=== PATIENT | female | born 2000 | race Caucasian/White ===

== ENCOUNTER 2024-05-03 12:59 | Emergency (ER) | payer OTHER, SELFPAY ==
--- NOTE | 2024-05-03 13:03 | ED.GENADULT ---
HPI - General Adult General Chief complaint: Upper Respiratory Infection Stated complaint: Headache Time Seen by Provider: 05/03/24 13:15 Source: patient, RN notes reviewed and old records reviewed Mode of arrival: ambulatory Limitations: no limitations History of Present Illness HPI narrative: 24-year-old female presents to the [facility] with a 4-5 day history of body aches, congestion. No treatment prior to arrival Onset (ago): day(s) (4-5) Treatments prior to arrival: none Related Data Home Medications Medication Instructions Recorded Confirmed No Home Medications 05/03/24 05/03/24 Allergies Allergy/AdvReac Type Severity Reaction Status Date / Time No Known Allergies Allergy Verified 05/03/24 13:24 Review of Systems Review of Systems: All systems reviewed & are unremarkable except as noted in HPI and below Constitutional: Constitutional: Reports no additional constitutional complaints Eyes: Eyes: Reports no additional eye complaints ENT: Reports as per HPI Cardiovascular: Cardiovascular: Reports no additional cardiovascular complaints, Denies chest pain and Denies dyspnea Respiratory: Respiratory: Reports no additional respiratory complaints, Denies chest congestion, Denies cough and Denies dyspnea Gastrointestinal: Gastrointestinal: Reports no additional gastrointestinal complaints, Denies abdominal pain, Denies nausea and Denies vomiting Musculoskeletal: Musculoskeletal: Reports no additional musculoskeletal complaints Integumentary/Breasts: Skin/Breast: Reports system reviewed and no additional complaints, except as docu Neurologic: Reports system reviewed and no additional complaints, except as documented Psychiatric: Psychiatric: Reports no additional psychiatric complaints Allergic/Immunologic: Allergic/Immunologic: Reports no additional allergic/immunologic complaints PMFSH Comments At the time of my signature, I reviewed and agree with the nursing past medical, surgical, social, and family history. There is no relevant family history pertinent to the patient complaint. Exam Const: General: cooperative, healthy appearing, comfortable, no acute distress, well developed, alert and well nourished Nutritional Appearance: well nourished and obese Orientation/consciousness: patient oriented x3 Limitations: no limitations HENMT: Head: normal to inspection Ears: hearing grossly normal bilaterally, external ears normal, TM's normal bilaterally, EAC's normal, mastoids normal and no periauricular adenopathy Face/Nose/Sinus: Normal external nose present, Normal nares present, Normal nasal mucous membranes and turbinates present, normal facial exam and face symmetric Face and sinus: normal facial exam and face symmetric Throat: tonsils normal, uvula midline, postnasal drainage and no uvular edema Eyes: General: appearance normal, both eyes and all related structures Alignment and Position: alignment normal Periorbital: periorbital findings normal Neck: Neck: normal visual inspection, full ROM, no lymphadenopathy and no meningeal signs Chest: Chest palpation & inspection: normal inspection of the chest Resp: Effort & Inspection: normal respiratory effort and able to speak in complete sentences Auscultation: clear to auscultation bilaterally, no crackles, no rales, no rhonchi and no wheezes Cardio: Rate: regular rate Rhythm: regular rhythm Skin: General skin exam: normal color and no rashes or lesions noted Lesions: no lesions Rashes: no rashes Trauma: no lacerations or abrasions Wounds: no wounds Neuro: General: patient oriented x3, gait normal, tone normal, moves all extremities and no meningeal signs Cranial nerves: Yes Equal, round and reactive pupils present Cognition (Neuro): normal cognition Speech: normal speech Gait exam (Neuro): Normal gait present Extrem: General: normal to inspection, full ROM, capillary refill normal and normal gait Psych: Appearance: grossly normal and well
[2024-05-03 13:17] VITALS: BP 143/92; PULSE 107; RESP 16; TEMP 37.2; O2SAT 98
== END 2024-05-03 13:40 | disposition home or self-care (01) ==
PROVIDERS: Emergency Provider Nurse Practitioner
DX: J32.9 Chronic sinusitis, unspecified (principal); J06.9 Acute upper respiratory infection, unspecified
CPT/HCPCS: 99202; G0463

== ENCOUNTER 2024-07-13 17:07 | Emergency (ER) | payer OTHER, SELFPAY ==
[2024-07-13 17:16] VITALS: BP 138/75; PULSE 93; RESP 16; TEMP 37; O2SAT 99
--- NOTE | 2024-07-13 17:36 | ED.URI ---
HPI - URI/Sore Throat General Chief Complaint: Upper Respiratory Infection Stated Complaint: loss of voice,throat pain,ear pain Time Seen by Provider: 07/13/24 17:36 Source: patient Mode of arrival: ambulatory Limitations: no limitations History of Present Illness HPI Narrative: 24-year-old female presents with complaint of ear pain. Reports nasal congestion, postnasal drainage, sore throat for 4-5 days. Ear pain for 2 days. Afebrile. Patient reports history of frequent ear infections. All systems reviewed and negative except as noted above. Related Data Allergies Allergy/AdvReac Type Severity Reaction Status Date / Time No Known Allergies Allergy Verified 07/13/24 17:13 Review of Systems Review of Systems: CONSTITUTIONAL: Denies fever, chills, or sweats. EYES: Denies visual changes, redness, or discharge. ENT: Reports rhinorrhea, congestion, sore throat, and otalgia. CARDIOVASCULAR: Denies chest pain, palpitations, or edema. RESPIRATORY: Denies cough or dyspnea. GASTROINTESTINAL: Denies abdominal pain, nausea, vomiting, or diarrhea. GENITOURINARY: Denies dysuria or hematuria. SKIN: Denies rash or itching. MUSCULOSKELETAL: Denies back pain, joint pain, or myalgia. NEUROLOGIC: Denies headache, numbness, or weakness. PSYCHIATRIC: Denies anxiety or depression. All other systems reviewed are negative, except as documented in HPI. PMFSH Comments At time of signature, agree with nursing past medical, surgical, social and family history. There is no relevant family history pertinent to the presenting complaint. Exam Narrative: GENERAL: This is a well-nourished, well-developed patient, in no apparent distress. HEAD: normocephalic, atraumatic. EYES: PERRL. Sclera clear/white. Vision is grossly intact. EARS: External ears normal, auditory canals clear and without drainage, fluid bilateral TMs with erythema, bulging. No perforation bilaterally. Hearing grossly intact. NOSE: External nose normal with Mild nasal congestion, clear nasal drainage THROAT: Mucous membranes moist, posterior pharynx clear. NECK: Neck supple, non-tender without lymphadenopathy, masses or thyromegaly. CARDIOVASCULAR: Regular rate and rhythm without murmurs, gallops, or rubs. RESPIRATORY: Clear to auscultation. Breath sounds equal bilaterally. No wheezes, rales, or rhonchi. SKIN: warm, Dry, intact with no suspicious lesions or rash, good texture and turgor. NEURO: awake, alert, and oriented to person, place and time. There were no obvious focal neurologic abnormalities. EXTREMITIES: No joint tenderness, effusion, or edema noted. Course Course Level of Care: Express Care Visit Vital Signs Vital signs: Vital Signs Temperature 37.0 C 07/13/24 17:16 Pulse Rate 93 07/13/24 17:16 Respiratory Rate 16 07/13/24 17:16 Blood Pressure 138/75 07/13/24 17:16 Pulse Oximetry 99 07/13/24 17:16 Oxygen Delivery Room Air 07/13/24 17:16 Temperature 37.0 C 07/13/24 17:16 Pulse Rate 93 07/13/24 17:16 Respiratory Rate 16 07/13/24 17:16 Blood Pressure 138/75 07/13/24 17:16 Pulse Oximetry 99 07/13/24 17:16 Oxygen Delivery Room Air 07/13/24 17:16 reviewed MDM - URI/Sore Throat MDM Narrative Medical decision making narrative: Patient is aware of diagnosis, understands and agrees to treatment plan. Anticipatory guidance given. Patient agrees to follow-up as directed and is aware of reasons to seek care at the emergency department. Portions of this record may have been created with voice recognition software Differential Diagnosis Differential diagnosis: Likely upper respiratory infection, otitis media and sinusitis Discharge Plan Discharge Clinical Impression: Bilateral acute otitis media Patient Disposition: Home, Self-Care Condition: Stable Instructions: Antibiotic Form, Ear Infection (ED) Additional Instructions: take antibiotic as prescribed until gone. Take ibuprofen or Tylenol every 6-8 hours as needed for pain. Take an [id number] antihistamine daily such as Claritin or Zyrtec. Use a nasal spray daily such as Flonase or Nasacort. See your doctor if symptoms are not improving. Prescriptions: New amoxicillin 875 mg tablet 875 mg PO Q12H 10 Days Qty: 20 0RF Follow-up/Referrals: PHYSICIAN,STORAGE AND BACKUP ADMINISTRATOR [Primary Care Provider] - Time of Disposition: 17:42
== END 2024-07-13 17:44 | disposition home or self-care (01) ==
PROVIDERS: Emergency Provider Nurse Practitioner Family
DX: H66.93 Otitis media, unspecified, bilateral (principal)
CPT/HCPCS: 99213; G0463

== ENCOUNTER 2024-07-26 10:34 | Emergency (ER) | payer OTHER, SELFPAY ==
--- NOTE | 2024-07-26 10:37 | ED_ITS ---
HPI - URI/Sore Throat General Chief Complaint: Ear Stated Complaint: ears blocked,itching,lower body rash Time Seen by Provider: 07/26/24 10:36 Source: patient Mode of arrival: ambulatory Limitations: no limitations History of Present Illness HPI Narrative: Oriented is a 24-year-old female patient presenting to the clinic today with complaints of ears feeling clogged, itching, and a rash. She reports she just finished amoxicillin prescription for an ear infection. Was seen 2 weeks ago for an ear infection and given amoxicillin. Denies any amoxicillin allergy-has had it multiple times without a rash for itching. She denies any chest pain but does report some slight shortness of breath. Has a red, itchy, raised, splotchy rash on her arms, legs, and abdomen. MD elicited complaint: cough Related Data Allergies Allergy/AdvReac Type Severity Reaction Status Date / Time No Known Allergies Allergy Verified 07/26/24 10:42 Review of Systems Review of Systems: Pertinent positives per HPI. Patient denies any fever, chills, rash, headache, visual changes, dizziness, shortness of breath, chest pain, palpitations, nausea, vomiting, diarrhea, constipation, abdominal pain, or any urinary issues. [facility] Comments At the time of my signature, I reviewed and agree with the nursing past medical, surgical, social, and family history. There is no relevant family history pertinent to the patient complaint. Exam Narrative: General: Well-developed, morbidly obese, in no apparent distress Head: Normocephalic, atraumatic Eyes: Pupils equally round and reactive to light bilaterally, EOM intact, sclera and conjunctive clear, no discharge, lids normal Ears: Right TM intact and clear, right TM intact, red, congested, ear canals clear, no drainage, grossly hearing normal. Nose: Nares patent, clear nasal discharge, no inflammation, no sinus tenderness. Mouth: Oral pharynx without lesions or masses, good dentition, MMM. Neck: Supple, trachea midline, no enlargement of anterior or posterior cervical nodes, no thyroid masses or goiter palpable. Cardio: Regular rate and rhythm, s1 and s2 normal, no murmur appreciated. Resp: Clear to auscultation bilaterally, no rhonchi, rales, wheezing or rubs Integumentary: [place], warm, and dry, intact without lesion, red, itchy, raised, hive like rash to the abdomen, arms, and legs. Course Course Emergency Course: Portions of this record may have been created with voice recognition software. Level of Care: Express Care Visit Vital Signs Vital signs: Vital signs reviewed MDM - URI/Sore Throat MDM Narrative Medical decision making narrative: At the time of visit patient is resting comfortably on the exam table. Patient appears to be nontoxic. Plan: I suspect patient has resolving otitis media and hives. Prescription for prednisone was sent to the pharmacy. Supportive measures were discussed with the patient and they voiced understanding discharge instructions and agrees to treatment plan. Return precautions reviewed Differential Diagnosis Differential diagnosis: Likely upper respiratory infection, otitis media, sinusitis, viral infection, bronchitis, influenza, pharyngitis and other (COVID) Discharge Plan Discharge Clinical Impression: Acute urticaria Acute otalgia Qualifiers: Laterality: bilateral Qualified Code(s): H92.03 - Otalgia, bilateral Patient Disposition: Home, Self-Care Condition: Stable Instructions: Antibiotic Form, Urticaria (ED), Earache (ED) Additional Instructions: Left ear does appear to be somewhat red with congestion behind the ear however I feel as though this is resolving. Take prednisone as directed May take 20-40 mg of Pepcid daily times 10 days Avoid hot showers May apply calamine lotion to rash Avoid scratching and this causes rash to spread May take benadryl 25-50mg every 6 hours as needed for itching. Follow up with your PCP in 3-5 days if symptoms persist or sooner if they worsen. Go to the Emergency Room if symptoms worsen- fever, rash spreading with treatment, shortness of breath, tongue swelling, drooling, or chest pain Patient Language: [place] Island[place] Prescriptions: New prednisone 10 mg tablet 10 mg PO DAILY Qty: 30 0RF Rx Instructions: 60mg po daily on day 1, 40mg po daily on days 2-4, 30mg po daily on days 5-6, 20mg po daily on days 7-8, 10mg po daily on days 9-10 Follow-up/Referrals: PHYSICIAN,DRUM BUILDER [Primary Care Provider] - Time of Disposition: 10:49 Quality NIHSS Nursing Documentation ED NIHSS nursing documentation: reviewed/agree
[2024-07-26 10:45] VITALS: BP 134/83; PULSE 110; RESP 18; TEMP 36.9; O2SAT 99
== END 2024-07-26 10:57 | disposition home or self-care (01) ==
PROVIDERS: Emergency Provider Nurse Practitioner Family
DX: L50.9 Urticaria, unspecified (principal); H92.03 Otalgia, bilateral
CPT/HCPCS: 99213; G0463

== ENCOUNTER 2024-09-12 18:41 | Emergency (ER) | payer OTHER, SELFPAY ==
[2024-09-12 18:52] VITALS: BP 114/61; PULSE 101; RESP 18; TEMP 36.6; O2SAT 100
--- NOTE | 2024-09-12 19:45 | ED.FEMALEGU ---
HPI - Female Genitourinary General Chief complaint: Urogenital-Female Stated complaint: Right Side Flank/Back/Hip Pain Time Seen by Provider: 09/12/24 19:45 Source: patient and RN notes reviewed Mode of arrival: ambulatory Limitations: no limitations History of Present Illness MD elicited complaint: UTI Related Data Home Medications ?Medication ?Instructions ?Recorded ?Confirmed ?Last Taken ?Type No Home Medications 09/12/24 Unknown History Allergies Allergy/AdvReac Type Severity Reaction Status Date / Time No Known Allergies Allergy Verified 09/12/24 19:03 Review of Systems Review of Systems: CONSTITUTIONAL: Denies malaise, chills, sweats, or fever. CARDIOVASCULAR: Denies chest pain, palpitations, or edema. RESPIRATORY: Denies cough or dyspnea. GASTROINTESTINAL: Denies abdominal pain, nausea, vomiting, diarrhea GENITOURINARY: Reports dysuria, frequency, urgency, suprapubic pressure. Denies flank pain or hematuria. SKIN: Denies rash or itching. MUSCULOSKELETAL: Denies back pain or myalgia. All systems reviewed & are unremarkable except as noted in HPI and below PMFSH Comments At time of signature, agree with nursing past medical, surgical, social and family history. There is no relevant family history pertinent to the presenting complaint Exam Narrative: GENERAL: Well-appearing, well-nourished, and in no acute distress. HEAD: Normocephalic. EYES: PERRLA, conjunctivae clear. NECK: Supple. No lymphadenopathy CHEST: Clear to auscultation. No respiratory distress. HEART: Regular rate and rhythm. ABDOMEN: Soft, nontender upon palpation, nondistended, normal active bowel sounds, no palpable or pulsatile masses, no guarding. No CVA tenderness SKIN: Warm, dry, no rash. NEURO: Alert and oriented x3. PSYCH: Normal mood and affect Course Course Emergency Course: Patient is aware of diagnosis, understands and agrees to treatment plan. Anticipatory guidance given. Patient agrees to follow-up as directed and is aware of reasons to seek care at the emergency department. Portions of this record may have been created with voice recognition software Level of Care: Express Care Visit Vital Signs Vital signs: Vital Signs Temperature 97.8 F 09/12/24 18:52 Pulse Rate 101 H 09/12/24 18:52 Respiratory Rate 18 09/12/24 18:52 Blood Pressure 114/61 09/12/24 18:52 Pulse Oximetry 100 09/12/24 18:52 Oxygen Delivery Room Air 09/12/24 18:52 Temperature 97.8 F 09/12/24 18:52 Pulse Rate 101 H 09/12/24 18:52 Respiratory Rate 18 09/12/24 18:52 Blood Pressure 114/61 09/12/24 18:52 Pulse Oximetry 100 09/12/24 18:52 Oxygen Delivery Room Air 09/12/24 18:52 Reviewed. MDM - Female Genitourinary MDM Narrative Medical decision making narrative: Exam findings and UA show no acute concerns or changes; patient is non-toxic appearing and is in no distress. Patient is appropriate for outpatient treatment and follow-up. Differential Diagnosis Differential diagnosis: Likely urinary tract infection and cystitis Critical Care Time Critical Care Time Critical Care Time: No Discharge Plan Discharge Patient Language: Peruvian Prescriptions: No Action No Home Medications Follow-up/Referrals: PHYSICIAN,OLIVING MACHINE OPERATOR [Primary Care Provider] -
[2024-09-12 19:51] LABS: EDUAAPPEAR Cloudy; EDUABILI Negative (Negative); EDUABLOOD 2+ (Negative); EDUACOLOR1 Amber; EDUAGLUCOSE Negative (Negative); EDUAKETONE Negative (Negative); EDUALEUKO Trace (Negative); EDUANITRATE Negative (Negative); EDUAPH 5.5; EDUAPROTEIN Negative (Negative); EDUASPGRAVITY 1.025; EDUAUROBILI 0.2
--- NOTE | 2024-09-12 19:53 | ED_ITS ---
HPI - Back Pain/Injury General Chief Complaint: Urogenital-Female Stated Complaint: Right Side Flank/Back/Hip Pain Time Seen by Provider: 09/12/24 19:45 Source: patient and RN notes reviewed Mode of arrival: ambulatory Limitations: no limitations History of Present Illness HPI Narrative: 24-year-old female presents concern for right low back pain that radiates to the hip and buttock. She reports pain for 1 it is worse she moves, bends, twists, stands up. She denies pain at rest. She had a laparoscopic hysterectomy 2 weeks ago in her surgeon suggested she get checked for UTI. She denies fever, body aches, chills, sweats, dysuria, frequency, urgency, hematuria, nausea, vomiting. She denies abdominal pain. She denies loss of bowel or bladder function, perianal anesthesia, weakness in any extremity MD elicited complaint: back pain Related Data Allergies Allergy/AdvReac Type Severity Reaction Status Date / Time No Known Allergies Allergy Verified 09/12/24 19:03 Review of Systems Review of Systems: CONSTITUTIONAL: Denies malaise, chills, sweats, or fever. CARDIOVASCULAR: Denies chest pain, palpitations, or edema. RESPIRATORY: Denies cough or dyspnea. GASTROINTESTINAL: Denies abdominal pain, nausea, vomiting, diarrhea, loss of bowel function GENITOURINARY: Denies dysuria, hematuria, frequency, loss of bladder function. SKIN: Denies rash or itching. MUSCULOSKELETAL: Reports right low back pain that radiates to the right buttock, hip, towards the abdomen NEUROLOGIC: Denies numbness, weakness, or headache. All systems reviewed & are unremarkable except as noted in HPI and below PMFSH Comments At time of signature, agree with nursing past medical, surgical, social and family history. There is no relevant family history pertinent to the presenting complaint Exam Narrative: GENERAL: Well-appearing, well-nourished, and in no acute distress. HEAD: Normocephalic, atraumatic. EYES: PERRLA and EOMI. NECK: Supple. No lymphadenopathy. CHEST: Clear to auscultation. No respiratory distress. HEART: Regular rate and rhythm. Distal pulses palpable and equal, cap refill <3 seconds ABDOMEN: Soft, nontender, nondistended, normal active bowel sounds, no palpable or pulsatile masses. No CVA tenderness MUSCULOSKELETAL: Normal range of motion and strength in all extremities; 5/5 strength with hip flexion and extension, dorsiflexion and extension, knee flexion and extension, plantar flexion and extension. Normal sensation in dermatomal distributions with sensitivity to light touch and pain. No midline back tenderness to palpation. No paraspinal tenderness. Transfers from sitting to standing. SKIN: Warm, dry, no rash. No ecchymosis, erythema, open wounds to back. NEURO: No focal deficits. Alert and oriented x3. Reflexes intact. Normal gait. PSYCH: Normal mood and affect Course Course Emergency Course: Patient is aware of diagnosis, understands and agrees to treatment plan. Anticipatory guidance given. Patient agrees to follow-up as directed and is aware of reasons to seek care at the emergency department. Portions of this record may have been created with voice recognition software Level of Care: [facility] Visit Vital Signs Vital signs: Vital Signs Temperature 97.8 F 09/12/24 18:52 Pulse Rate 101 H 09/12/24 18:52 Respiratory Rate 18 09/12/24 18:52 Blood Pressure 114/61 09/12/24 18:52 Pulse Oximetry 100 09/12/24 18:52 Oxygen Delivery Room Air 09/12/24 18:52 Temperature 97.8 F 09/12/24 18:52 Pulse Rate 101 H 09/12/24 18:52 Respiratory Rate 18 09/12/24 18:52 Blood Pressure 114/61 09/12/24 18:52 Pulse Oximetry 100 09/12/24 18:52 Oxygen Delivery Room Air 09/12/24 18:52 Reviewed. MDM - Back Pain/Injury MDM Narrative Medical decision making narrative: [facility]. History is obtained from patient who is an independent historian and physical exam was performed.? Available medical records were reviewed. ? Exam findings and relevant testing show no acute concerns or changes; patient is non-toxic appearing and is in no distress. No risk factors or findings concerning for epidural abscess, diskitis, vertebral osteomyelitis, cord compression, cauda equina, vertebral fracture or bone malignancy, AAA, or pyelonephritis. Patient instructed to consider further imaging and workup through their primary care physician as an outpatient if symptoms persist. ? Differential diagnosis and treatment plan were discussed with the patient. Patient agrees with discussion and after shared medical decision making agrees with plan of care. All questions were answered to the patient's satisfaction. Patient is appropriate for outpatient treatment and follow-up. Lab Data Labs: Lab Results 09/12/24 Range/Units 19:45 POC Urine Color [place]is POC Urine Clarity Cloudy POC Urine pH 5.5 POC Ur Specif [place] 1.025 POC Urine Protein Negative (Negative) POC Ur Glucose (UA) Negative (Negative) POC Urine Ketones Negative (Negative) POC Urine Blood 2+ (Negative) POC Urine Nitrite Negative (Negative) POC Urine Bilirubin Negative (Negative) POC Urine Urobilinogen 0.2 POC U Leukocyte Esteras Trace (Negative) Critical Care Time Critical Care Time Critical Care Time: No Discharge Plan Discharge Clinical Impression: Nonspecific low back pain Patient Disposition: Home, Self-Care Condition: Stable Instructions: Back Pain (ED) Additional Instructions: Please follow up with your Primary Care Doctor within 48-72 hours - call for an appointment. Walking and other gentle exercising several times a week has been shown to improve back pain; bed rest is not recommended. Take Motrin 800mg every 6-8 hours with food for the next 2-3 days, take muscle relaxers every 8 hours as needed for muscle spasm- do not drive or make any important decisions while on this medication for it can make you drowsy. You may apply heat or cold to the area as needed. If you experience any worsening pain, swelling, numbness, weakness please go to ER. Contact your doctor or go to the emergency department if you develop problems with bladder or bowel function, weakness or loss of feeling in one or both of your legs, or any other serious concerns. Patient Language: [place] Prescriptions: New cyclobenzaprine 10 mg tablet 10 mg PO TID PRN (Reason: muscle spasm) Qty: 20 0RF ibuprofen 800 mg tablet 800 mg PO Q6H PRN (Reason: pain) Qty: 30 0RF Follow-up/Referrals: PHYSICIAN,WASTEWATER TREATMENT PLANT OPERATOR [Primary Care Provider] - Time of Disposition: 19:55
== END 2024-09-12 20:05 | disposition home or self-care (01) ==
PROVIDERS: Emergency Provider Nurse Practitioner
DX: M54.50 Low back pain, unspecified (principal)
CPT/HCPCS: 81003; 87086; 99213; G0463

== ENCOUNTER 2024-12-20 08:04 | Emergency (ER) | payer OTHER, SELFPAY ==
--- NOTE | 2024-12-20 08:07 | ED.GENADULT ---
HPI - General Adult General Chief complaint: Unspecified Stated complaint: Reaction To New Medicaine Time Seen by Provider: 12/20/24 08:14 Source: patient, RN notes reviewed and old records reviewed Mode of arrival: ambulatory Limitations: no limitations History of Present Illness HPI narrative: 24-year-old female presents to the [facility] after taking 1 dose of Zoloft 100 mg at 4:00 p.m. yesterday, started at 9:00 p.m. last night feeling shaky, brain fog, and trouble sleeping. Has a HX of being on Zoloft 2 years ago without issues. Denies chest pain, shortness of breath. Denies fevers. Onset (ago): day(s) (1) Related Data Home Medications ?Medication ?Instructions ?Recorded ?Confirmed ?Last Taken ?Type sertraline 100 mg tablet mg 12/20/24 Unknown History Allergies Allergy/AdvReac Type Severity Reaction Status Date / Time No Known Allergies Allergy Verified 12/20/24 08:21 Review of Systems Review of Systems: All systems reviewed & are unremarkable except as noted in HPI and below Constitutional: Constitutional: Reports as per HPI, Reports body ache(s) and Reports fatigue ENT: Reports system reviewed and no additional complaints, except as documented Cardiovascular: Cardiovascular: Reports no additional cardiovascular complaints, Denies chest pain and Denies dyspnea Respiratory: Respiratory: Reports no additional respiratory complaints, Denies chest congestion, Denies cough and Denies dyspnea Musculoskeletal: Musculoskeletal: Reports no additional musculoskeletal complaints Integumentary/Breasts: Skin/Breast: Reports system reviewed and no additional complaints, except as docu Psychiatric: Psychiatric: Denies homicidal ideation and Denies suicidal ideation COUNTS INCLUDE 234 BEDS AT THE [facility] Past Medical History Medical History (Updated 12/20/24 @ 08:29 by Lianna Cheatham APRN) Anxiety and depression Comments At the time of my signature, I reviewed and agree with the nursing past medical, surgical, social, and family history. There is no relevant family history pertinent to the patient complaint. Exam Const: General: cooperative, no acute distress, well developed, alert, tired appearing and well nourished; No ill appearing Nutritional Appearance: well nourished Orientation/consciousness: patient oriented x3 Limitations: no limitations HENMT: Head: normal to inspection Ears: hearing grossly normal bilaterally Mouth: Yes Normal oral and palatal mucosa present, Yes lip normal and Yes moist mucous membranes Eyes: General: appearance normal, both eyes and all related structures Alignment and Position: alignment normal Neck: Neck: normal visual inspection, full ROM, no lymphadenopathy and no meningeal signs Chest: Chest palpation & inspection: normal inspection of the chest Resp: Effort & Inspection: normal respiratory effort and able to speak in complete sentences Auscultation: clear to auscultation bilaterally, no crackles, no rales, no rhonchi and no wheezes Cardio: Rate: regular rate Skin: General skin exam: normal color and no rashes or lesions noted Neuro: General: patient oriented x3, gait normal, moves all extremities and no meningeal signs Cognition (Neuro): normal cognition Speech: normal speech Gait exam (Neuro): Normal gait present Extrem: General: normal to inspection, full ROM, capillary refill normal and normal gait Psych: Appearance: grossly normal and well kempt Mental Status: mental status grossly normal Speech and movement: Normal speech and movement present and Clear speech present Affect: normal affect Attitude: cooperative Thought process: Normal thought process present Course Course Level of Care: Express Care Visit Vital Signs Vital signs: Vital Signs Temperature 98.7 F 12/20/24 08:24 Pulse Rate 85 12/20/24 08:24 Respiratory Rate 20 12/20/24 08:24 Blood Pressure 151/76 H 12/20/24 08:24 Pulse Oximetry 100 12/20/24 08:24 Oxygen Delivery Room Air 12/20/24 08:24 Temperature 98.7 F 12/20/24 08:24 Pulse Rate 85 12/20/24 08:24 Respiratory Rate 20 12/20/24 08:24 Blood Pressure 151/76 H 12/20/24 08:24 Pulse Oximetry 100 12/20/24 08:24 Oxygen Delivery Room Air 12/20/24 08:24 Reviewed Medical Decision Making MDM Narrative Medical decision making narrative: Patient sitting in exam room. Patient is nontoxic, vitals except for blood pressure stable. Blood pressure mildly elevated. Patient is reporting that she took 1 dose of 100 mg Zoloft yesterday, 5 hours later started feeling shaky, had some insomnia last night Discussed with patient to either stop the medication and follow-up with primary care provider or possibly started half the does. Discussed taking Benadryl at night to help with insomnia Patient had denied any other symptoms. Discharge instructions reviewed with patient, as well as provided in writing per nursing staff. The instructions also include specific and strict return/GO TO THE ER as well as f/u information. All questions have been answered, and the patient deny any further questions with discharge and discharge plan. Some parts of this dictation were generated by voice recognition software and may contain typographical and/or grammatical inaccuracies. Differential Diagnosis Differential Diagnosis: Medication reaction, anxiety Medical Records Medical records reviewed: Yes I reviewed the external patient's medical records. Vital Signs Vital Signs: Vital Signs Temperature 98.7 F 12/20/24 08:24 Pulse Rate 85 12/20/24 08:24 Respiratory Rate 20 12/20/24 08:24 Blood Pressure 151/76 H 12/20/24 08:24 Pulse Oximetry 100 12/20/24 08:24 Oxygen Delivery Room Air 12/20/24 08:24 Temperature 98.7 F 12/20/24 08:24 Pulse Rate 85 12/20/24 08:24 Respiratory Rate 20 12/20/24 08:24 Blood Pressure 151/76 H 12/20/24 08:24 Pulse Oximetry 100 12/20/24 08:24 Oxygen Delivery Room Air 12/20/24 08:24 Reviewed Lab Data Lab results reviewed: Yes I reviewed the patient's lab results. Labs: Reviewed Critical Care Time Critical Care Time Critical Care Time: No Discharge Plan Discharge Clinical Impression: Medication reaction Qualifiers: Encounter type: initial encounter Qualified Code(s): T50.905A - Adverse effect of unspecified drugs, medicaments and biological substances, initial encounter Patient Disposition: Home Condition: Stable Instructions: Antibiotic Form, Sertraline (By mouth) Additional Instructions: Your primary care doctor on Sunday and let them know your symptoms. Today your blood pressure was 151/76 it is recommended you follow-up with your primary care provider within 2 weeks take Benadryl to help with sleep. For new or worsening symptoms go directly to the emergency room Patient Language: Turkish Prescriptions: No Action sertraline 100 mg tablet Follow-up/Referrals: Elton Kim MD [Primary Care Provider] - 2 Days (express care follow up ) Time of Disposition: 08:24
[2024-12-20 08:24] VITALS: BP 151/76; PULSE 85; RESP 20; TEMP 37.1; O2SAT 100
== END 2024-12-20 08:30 | disposition home or self-care (01) ==
PROVIDERS: Emergency Provider Nurse Practitioner; PCP Family Medicine
DX: R25.1 Tremor, unspecified (principal); G47.00 Insomnia, unspecified; R41.9 Unspecified symptoms and signs involving cognitive functions and awareness; T43.225A Adverse effect of selective serotonin reuptake inhibitors, initial encounter
CPT/HCPCS: 99211; G0463

== ENCOUNTER 2025-04-04 10:47 | Emergency (ER) | payer OTHER, SELFPAY ==
[2025-04-04 11:01] VITALS: BP 137/97; PULSE 86; RESP 20; TEMP 37; O2SAT 99
[2025-04-04 11:20] LABS: EDSTREPNEGPOS1 Negative (Negative)
--- NOTE | 2025-04-04 11:22 | ED.URI ---
HPI - URI/Sore Throat General Chief Complaint: Upper Respiratory Infection Stated Complaint: sore throat/fatigue Time Seen by Provider: 04/04/25 11:17 Source: patient and RN notes reviewed Mode of arrival: ambulatory Limitations: no limitations History of Present Illness HPI Narrative: Patient presents today complaining of sore throat, fatigue, rhinorrhea, dizziness, chills and sweats since yesterday. Denies fever, nasal congestion, shortness of breath. Currently rates her sore throat 5/10 and has been using Chloraseptic without much relief. Denies known sick contacts, but child attends tie [employer] at times. Related Data Home Medications ?Medication ?Instructions ?Recorded ?Confirmed ?Last Taken ?Type sertraline 100 mg tablet mg 12/20/24 Unknown History Allergies Allergy/AdvReac Type Severity Reaction Status Date / Time No Known Allergies Allergy Verified 04/04/25 10:54 [facility] [place] Past Medical History Medical History Anxiety and depression Comments At time of signature, I have reviewed and agree with nursing past medical, surgical, social and family history unless otherwise noted. Please see nursing chart for further information. There is no relevant family history pertinent to the presenting complaint Exam Narrative: GENERAL: Mildly ill-appearing, well-nourished, and in no acute distress. HEAD: Normocephalic, atraumatic. EYES: EOMI. No redness or drainage. Conjunctivae normal. ENT: Mucous membranes pink and moist. Nares clear. No rhinorrhea. TMs normal bilaterally. Throat mildly erythematous without edema or exudate.. Uvula midline. NECK: Normal AROM. Supple. No lymphadenopathy. CHEST: No respiratory distress. Clear to auscultation. HEART: Regular rate and rhythm. No murmur appreciated. EXTREMITIES: Normal range of motion. No edema. SKIN: Warm, dry, no rash. Capillary refill normal. Normal skin turgor. NEURO: No focal deficits. Alert and oriented x3. Gait steady. PSYCH: Normal affect. No signs of depression or anxiety. Course Course Level of Care: Express Care Visit Vital Signs Vital signs: Vital Signs Temperature 98.6 F 04/04/25 11:01 Pulse Rate 86 04/04/25 11:01 Respiratory Rate 20 04/04/25 11:01 Blood Pressure 137/97 H 08/23/25 11:01 Pulse Oximetry 99 04/04/25 11:01 Oxygen Delivery Room Air 04/04/25 11:01 Temperature 98.6 F 04/04/25 11:01 Pulse Rate 86 04/04/25 11:01 Respiratory Rate 20 04/04/25 11:01 Blood Pressure 137/97 H 04/04/25 11:01 Pulse Oximetry 99 04/04/25 11:01 Oxygen Delivery Room Air 04/04/25 11:01 Reviewed MDM - URI/Sore Throat MDM Narrative Medical decision making narrative: 24-year-old female patient presents today with sore throat, dizziness, fatigue, chills and sweats, rhinorrhea since yesterday. She has been using Chloraseptic without much improvement currently rates her sore throat 12/20. Exam shows a mildly erythematous throat. COVID, influenza, and rapid strep were negative. Strep culture pending. Symptoms likely viral in etiology. Discussed [id number] medication use and duration of illness. No prescription medications indicated at this time. Anticipatory guidance given. Vital signs stable. Recommend starting an NSAID for her discomfort. Patient agrees with plan. Anticipatory guidance given. Differential Diagnosis Differential diagnosis: Likely upper respiratory infection, otitis media, viral infection, influenza, pharyngitis and other (Strep throat, COVID) Lab Data Attestation: I reviewed the patient's lab results. Lab results narrative: COVID and influenza negative Labs: Lab Results 04/04/25 Range/Units 11:05 POC Grp A Strep Screen Negative (Negative) Critical Care Time Critical Care Time Critical Care Time: No Discharge Plan Discharge Clinical Impression: Upper respiratory infection Qualifiers: URI type: unspecified URI Qualified Code(s): J06.9 - Acute upper respiratory infection, unspecified Patient Disposition: Home Condition: Stable Instructions: Upper Respiratory Infection (DC) Additional Instructions: Your influenza, COVID-19, and rapid strep swabs were negative today at [facility]. You will be notified in a few days if the culture comes back positive for strep, and appropriate antibiotics will be called in for you at that time. Your symptoms are likely due to a viral illness, which is not treated with antibiotics. Viral symptoms can be present for up to 7-10 days. Take Tylenol or ibuprofen for fever or pain. Rest and stay hydrated. Follow up with your PCP in 7 days if symptoms are not improving. Go to the ER immediately if you have any difficulty breathing or swallowing. Your blood pressure was elevated above 120/80 today at Urgent Care. This puts you above the threshold for follow up. Please schedule a followup visit with your personal physician as soon as possible, for further evaluation and treatment. Even blood pressure exceeding 120/80 may indicate pre-hypertension. Patient Language: Swazi Prescriptions: No Action sertraline 100 mg tablet Follow-up/Referrals: Elton Kim MD [Primary Care Provider, Family Practice] Time of Disposition: 11:30
[2025-04-04 11:28] LABS: EDCOVIDSCREEN Negative (Negative); EDINFLUASCREEN Negative (Negative); EDINFLUBSCREEN Negative (Negative)
== END 2025-04-04 11:35 | disposition home or self-care (01) ==
PROVIDERS: Emergency Provider Nurse Practitioner; PCP Family Medicine
DX: J06.9 Acute upper respiratory infection, unspecified (principal); Z20.822 Contact with and (suspected) exposure to COVID-19; F41.9 Anxiety disorder, unspecified; F32.A Depression, unspecified
CPT/HCPCS: 87081; 87426; 87804; 87880; 99213; G0463

== ENCOUNTER 2025-05-10 17:24 | Emergency (ER) | payer OTHER, SELFPAY ==
[2025-05-10 17:35] VITALS: BP 128/77; PULSE 89; RESP 20; TEMP 36.7; O2SAT 100
--- NOTE | 2025-05-10 17:44 | ED.URI ---
HPI - URI/Sore Throat General Chief Complaint: Upper Respiratory Infection Stated Complaint: Sore Throat/Headache Time Seen by Provider: 05/10/25 17:44 Source: patient, RN notes reviewed and old records reviewed Mode of arrival: ambulatory Limitations: no limitations History of Present Illness HPI Narrative: 25 year old female who presents to [facility] care with complaints of 2 day history of sore throat, headache, ear pain, fatigue, chills and some swelling under her chin, horse voice. Patient reports that she has not had any fevers or any nausea vomiting or diarrhea, denies any body aches. Patient reports that she has not taken OTC medications for her symptoms. MD elicited complaint: sore throat and other (headache, fatigue, under chin swollen, ear pain) Onset (ago): day(s) (2) Severity: mild Treatments prior to arrival: none Related Data Home Medications ?Medication ?Instructions ?Recorded ?Confirmed ?Last Taken ?Type sertraline 100 mg tablet mg 12/20/24 Unknown History Allergies Allergy/AdvReac Type Severity Reaction Status Date / Time No Known Allergies Allergy Verified 05/10/25 17:26 Review of Systems Review of Systems: CONSTITUTIONAL: Denies malaise, chills, sweats, or fever. EYES: Denies visual changes, redness, or discharge. ENT: Reports rhinorrhea, congestion, sinus pain, bilateral otalgia and positive for sore throat.mild swelling tenderness under chin CARDIOVASCULAR: Denies chest pain, palpitations, or edema. RESPIRATORY: Reports no cough.? Denies dyspnea. GASTROINTESTINAL: Denies abdominal pain, nausea, vomiting, diarrhea SKIN: Denies rash or itching. MUSCULOSKELETAL: Denies myalgia. NEUROLOGIC: Positive for headache. All systems reviewed & are unremarkable except as noted in HPI and below PMFSH Past Medical History Medical History (Updated 05/11/25 @ 11:54 by Soniya Ruiz NP) GERD (gastroesophageal reflux disease) Anxiety and depression Surgical History Surgical History (Updated 05/11/25 @ 11:50 by Soniya Ruiz NP) History of cholecystectomy Hx of appendectomy History of tonsillectomy History of partial hysterectomy Previous section Social History Social History (Updated 05/11/25 @ 11:48 by Soniya Ruiz NP) Smoking status: Never smoker Alcohol use details: no alcohol use Substance use type: does not use Living arrangements: with family Gender identity (if verbalized by the patient): Female Comments At time of signature, agree with nursing past medical, surgical, social and family history. There is no relevant family history pertinent to the presenting complaint Exam Narrative: GENERAL: Well-appearing, well-nourished, obese and in no acute distress. HEAD: Normocephalic EYES: PERRLA, conjunctivae clear ENT: Nares clear, turbinates edematous and erythematous, clear discharge. Mucous membranes moist. TM pearly hurst with dull light reflex bilaterally; no tragal tenderness. Oropharynx erythematous without lesions. Tonsils not present and throat without exudate, no drooling, no hoarseness, no trismus, uvula midline.post nasal drainage noted. NECK: Supple,mild submental lymphadenopathy, no facial swelling no dental pain no Omar angina CHEST: Clear to auscultation, breath sounds equal. No wheezing, rhonchi, rales, or stridor. No respiratory distress, speaks in full sentences.[id number]% on room air HEART: Regular rate and rhythm. No murmur heard. SKIN: Warm, dry, no rash. NEURO: Alert and oriented x3. PSYCH: Normal mood and affect Course Course Emergency Course: Patient is aware of diagnosis, understands and agrees to treatment plan.? Anticipatory guidance given.? Patient agrees to follow-up as directed and is aware of reasons to seek care at the emergency department. Portions of this record may have been created with voice recognition software Level of Care: Express Care Visit Vital Signs Vital signs: Vital Signs Temperature 36.7 C 05/10/25 17:35 Pulse Rate 89 05/10/25 17:35 Respiratory Rate 05/10/25 17:35 Blood Pressure 128/77 05/10/25 17:35 Pulse Oximetry 100 05/10/25 17:35 Oxygen Delivery Room Air 05/10/25 17:35 Temperature 36.7 C 05/10/25 17:35 Pulse Rate 89 05/10/25 17:35 Respiratory Rate 20 05/10/25 17:35 Blood Pressure 128/77 05/10/25 17:35 Pulse Oximetry 100 05/10/25 17:35 Oxygen Delivery Room Air 05/10/25 17:35 Reviewed MDM - URI/Sore Throat MDM Narrative Medical decision making narrative: Differential diagnosis considered: Avalos virus, strep pharyngitis, allergic rhinitis, upper respiratory tract infection, sinusitis, rhinosinusitis, nasopharyngitis. viral pharyngitis, otitis media, otitis externa, pneumonia, bronchitis, viral cough syndrome, viral syndrome, and influenza.? Exam findings show no acute concerns or changes; patient is non-toxic appearing and is in no distress.? Patient is appropriate for outpatient treatment and follow-up. Differential Diagnosis Differential diagnosis: Likely upper respiratory infection, viral infection, pharyngitis and other (submental adenopathy) Lab Data Attestation: I reviewed the patient's lab results. Lab results narrative: strep screen negative, culture sent, mono screen negative, COVID negative, Influenza A&B negative Labs: Lab Results 05/10/25 05/10/25 05/10/25 Range/Units 17:50 17:54 17:55 POC Monoscreen Negative (Negative) POC Influenza A Ag Negative (Negative) POC Influenza B Ag Negative (Negative) POC SARS CoV-2 Ag Negative (Negative) POC Grp A Strep Screen Negative (Negative) reviewed Critical Care Time Critical Care Time Critical Care Time: No Discharge Plan Discharge Clinical Impression: Submental lymphadenopathy Pharyngitis Qualifiers: Pharyngitis/tonsillitis etiology: unspecified etiology Qualified Code(s): J02.9 - Acute pharyngitis, unspecified Patient Disposition: Home Condition: Stable Instructions: Lymphadenopathy (ED) Additional Instructions: Increase fluids especially juices and water [id number] cough and cold medicine of your choice for your symptoms Tylenol or ibuprofen for any fever pain Steroids as directed--take with food heat to the face 20-30 minutes 4-6 times a day for pain Salt water gargles, throat lozenges or throat sprays as desired Your strep test today was negative. A throat culture will be sent to the laboratory for further testing. IF the test is positive, you will receive a phone call within 48 hours and an appropriate antibiotic will be initiated at that time. If your symptoms persist, change or worsen significantly before you can contact your personal physician then please, without delay, go to the emergency department for further evaluation. Follow-up with PCP in 7-10 days or sooner if needed Follow up with PCP soon in regards to your blood pressure which is elevated above threshold for referral. Blood pressure above 120/80 may indicate pre-hypertension. 128/77 mild systolic elevation Patient Language: Uruguayan Prescriptions: New methylprednisolone [Medrol (Richard)] 4 mg tablets,dose pack See Rx Instructions .ROUTE .COMPLEX Qty: 21 0RF Rx Instructions: orally per package directions No Action sertraline 100 mg tablet Follow-up/Referrals: Elton Kim MD [Primary Care Provider, [facility]] Time of Disposition: 18:21 Quality Shar Coma Scale Eyes: Open Verbal: Oriented and Alert Motor: Follows Commands [place] Coma Total Score: 15
[2025-05-10 17:55] LABS: EDSTREPNEGPOS1 Negative (Negative)
[2025-05-10 17:57] LABS: EDCOVIDSCREEN Negative (Negative); EDINFLUASCREEN Negative (Negative); EDINFLUBSCREEN Negative (Negative)
[2025-05-10 18:03] LABS: EDMONONEGPOS Negative (Negative)
== END 2025-05-10 18:30 | disposition home or self-care (01) ==
PROVIDERS: Emergency Provider Registered Nurse; PCP Family Medicine
DX: R59.0 Localized enlarged lymph nodes (principal); J02.9 Acute pharyngitis, unspecified; Z20.822 Contact with and (suspected) exposure to COVID-19; K21.9 Gastro-esophageal reflux disease without esophagitis; F41.9 Anxiety disorder, unspecified; F32.A Depression, unspecified; Z90.711 Acquired absence of uterus with remaining cervical stump
CPT/HCPCS: 36416; 86308; 87081; 87426; 87804; 87880; 99213; G0463

== ENCOUNTER 2025-05-12 06:08 | Emergency (ER) | payer OTHER, SELFPAY ==
--- NOTE | ~2025-05-12 | XR_ITS ---
Examination: XR chest 1V portable Clinical History: URI, persistent, cough Comparison: Cough Technique: Portable AP Findings: Heart size normal. Lungs clear. No acute bony abnormality. IMPRESSION: 1. No acute cardiopulmonary findings given portable technique. Reviewed, dictated and finalized at location R.
[2025-05-12 06:10] VITALS: BP 152/94; PULSE 90; RESP 16; TEMP 36.8; O2SAT 98
--- NOTE | 2025-05-12 06:22 | ED_ITS ---
HPI - URI/Sore Throat General Chief Complaint: Upper Respiratory Infection Stated Complaint: uri Time Seen by Provider: 05/12/25 06:20 History of Present Illness HPI Narrative: 25-year-old otherwise healthy female presenting with 3 days of pharyngitis type symptoms. She went to urgent care 2 days ago and was diagnosed with viral pharyngitis and sent home with Medrol Dosepak as she was having some laryngitis type symptoms with losing her voice as well. She states the steroids have been helping when she has taken it but she still having symptoms today. Denies any fever chills but has had a cough. No sick contacts. She got tested for COVID, flu, RSV, mono, strep and they were all-2 days ago. Has not had any other rbqc-cnc-olxiufe therapies. No other associated symptoms besides a sore scratchy throat and states that it somewhat hurts to swallow. Related Data Home Medications ?Medication ?Instructions ?Recorded ?Confirmed ?Last Taken ?Type sertraline 100 mg tablet mg 12/20/24 Unknown History Allergies Allergy/AdvReac Type Severity Reaction Status Date / Time No Known Allergies Allergy Verified 05/12/25 06:24 Review of Systems Review of Systems: As reviewed above in HPI FOR[facility]LY [facility] Past Medical History Medical History GERD (gastroesophageal reflux disease) Anxiety and depression Surgical History Surgical History History of cholecystectomy Hx of appendectomy History of tonsillectomy History of partial hysterectomy Previous section Social History Social History Smoking status: Never smoker Alcohol use details: no alcohol use Substance use type: does not use Living arrangements: with family Gender identity (if verbalized by the patient): Female Exam Narrative: GENERAL: Hoarse voice but awake and answering questions appropriately HEAD: Normocephalic EYES: PERRLA ENT: Nares clear, no rhinorrhea or epistaxis. Mucous membranes moist. Minor redness in the posterior oropharynx but no exudates or tonsillar hypertrophy or erythema. Midline uvula. Tolerating secretions. Lymphadenopathy but no trismus or difficulty ranging the jaw. NECK: Supple. CHEST: [Clear to auscultation. No respiratory distress.] HEART: [Regular rate and rhythm]. No murmur heard. [Normal peripheral pulses.] ABDOMEN: [Soft, nondistended], [nontender], [No rigidity or guarding] EXTREMITIES: Normal range of motion. [No edema.] SKIN: Warm, dry, no rash. NEURO: [No focal deficits]. Alert and oriented [x3.] PSYCH: [Normal mood and affect.] Course Vital Signs Vital signs: Vital Signs Temperature 36.8 C 05/12/25 06:10 Pulse Rate 90 05/12/25 06:10 Respiratory Rate 16 05/12/25 06:10 Blood Pressure 152/94 H 05/12/25 06:10 Pulse Oximetry 98 05/12/25 06:10 Oxygen Delivery Room Air 05/12/25 06:10 Temperature 36.8 C 05/12/25 06:10 Pulse Rate 90 05/12/25 06:10 Respiratory Rate 16 05/12/25 06:10 Blood Pressure 152/94 H 05/12/25 06:10 Pulse Oximetry 98 05/12/25 06:10 Oxygen Delivery Room Air 05/12/25 06:10 MDM - URI/Sore Throat MDM Narrative Medical decision making narrative: 25-year-old otherwise healthy female presenting with 3 days of pharyngitis type symptoms. She went to urgent care 2 days ago and was diagnosed with viral pharyngitis and sent home with Medrol Dosepak as she was having some laryngitis type symptoms with losing her voice as well. She states the steroids have been helping when she has taken it but she still having symptoms today. Denies any fever chills but has had a cough. No sick contacts. She got tested for COVID, flu, RSV, mono, strep and they were all-2 days ago. Has not had any other ovtz-hor-qiorwxm therapies. No other associated symptoms besides a sore scratchy throat and states that it somewhat hurts to swallow. Nares clear, no rhinorrhea or epistaxis. Mucous membranes moist. Minor redness in the posterior oropharynx but no exudates or tonsillar hypertrophy or erythema. Midline uvula. Tolerating secretions. Lymphadenopathy but no trismus or difficulty ranging the jaw. Vital signs are stable. No hypoxemia. Otherwise well-appearing but does have a hoarse voice. Given intramuscular Decadron and Toradol for symptom control and chest x-ray. X-ray independently reviewed does not appear to have any consolidation pneumonia. Patient is safe for discharge encouraged to take ipmb-mvt-gqzausp remedies including lozenges, drinking warm liquids and Tylenol and ibuprofen for continued symptom control. Encouraged to follow-up with her primary care provider and return with any emergencies. Medical Records Attestation: I reviewed the patient's medical records. Imaging Data Attestation: I personally reviewed and interpreted this imaging study as follows: My impression: Impressions Chest X-Ray 05/12/25 06:41 IMPRESSION: 1. No acute cardiopulmonary findings given portable technique. Discharge Plan Discharge Clinical Impression: Acute viral pharyngitis, Acute viral laryngitis Patient Disposition: Home Condition: Stable Instructions: Antibiotic Form, Pharyngitis (ED), Laringitis (ED) Additional Instructions: X-ray does not show any pneumonia or any consolidations. Symptoms consistent with viral laryngitis/pharyngitis. COVID flu RSV, mono and strep testing were all negative 2 days ago. We have administered a strong anti-inflammatory medication and a high strength steroid within intramuscular injection. This will take a few hours to take full effect. These will help with your symptoms but in addition we recommend you take vjcb-gvx-jasclnz supplemental treatments such as lozenges for sore throat, drinking warm liquids such as tea, Tylenol and ibuprofen for any aches or pains and resting her voice for several days. Follow-up with your primary care provider and return with any emergencies. Patient Language: Guinean Prescriptions: No Action sertraline 100 mg tablet methylprednisolone [Medrol (Richard)] 4 mg tablets,dose pack See Rx Instructions .ROUTE .COMPLEX Qty: 21 0RF Rx Instructions: orally per package directions Follow-up/Referrals: Elton Kim MD [Primary Care Provider, [facility]] Time of Disposition: 06:46
--- OUTSIDE RECORDS SUMMARY | 2025-05-12 06:25 | XMS_ITS | Patient Health Record ---
Author Organization [facility] Billing Info Address [address] [place] [id number] Support Name Relationship Address Phone Ida Jaramillo Emergency Contact [address] [place], [place] [id number] Shelbi Howell Guarantor Unknown Reason For Referral No Information Medications Medication SIG (Take, Route, Frequency, Duration) Notes Start Date End Date Status Amoxicillin-Pot Clavulanate 875-125 MG 1 tablet Orally Twice a day for 10 day(s) 04/02/2014 Unknown Social History Tobacco Use: Social History Observation Description Date Details (start date - stop date) Never Smoker NA - NA Tobacco Status: Question Answer Notes Patient is a never smoker Problems No Known Problems Plan Of Treatment No Information Insurance Providers Payer Name Payer Address Payer Phone Subscriber Number Group Number Insured Name Patient Relationship to Insured Coverage Start Date Coverage End Date [facility] BL[facility] CHOICE [address] [place], [place] [phone] [id number] Shelbi Howell Self - patient is the insured Medical (General) History Medical History History ICD Code had a bacteria flesh eating on her left leg Bronchiolitis Surgical History Surgery Date(Month/Year) tonsillectomy bacterial flesh eating on le ft leg was in [facility] 2012 Hospitalization History Reason Date(Month/Year) left leg/ bacterial flesh eating 2012
--- OUTSIDE RECORDS SUMMARY | 2025-05-12 06:25 | XMS_ITS | Clinical Summary ---
Author Organization [facility] Address [address] [place] [address] Care Team Providers Care Mathematician Name Role Phone Unavailable Primary Care Provider Unavailabl e Allergies No known active allergies Medications sertraline (ZOLOFT) 50 mg tabletIndication s:Anxiety with Depression Take 50 mg by mouth daily Active clotrimazole 1 % creamIndications :Rash and nonspecific skin eruption Apply topically 2 (two) times a day To spot on abdomen for 2 weeks 30 g 3 Active Active Problems Problem Noted Date Diagnosed Date Recurrent major depressive disorder, in partial remission 02/27/2023 Gastroesophageal reflux disease without esophagi tis 02/27/2023 Resolved Problems Problem Noted Date Diagnosed Date Resolved Date Acute appendicitis with loca lized peritonitis, without perforation, abscess, or gangrene 09/28/2022 02/27/2023 Acute appendicitis 09/28/2022 3 Immunizations Immunization Administration Dates Next Due Tdap 02/10/2022 Surgical History Surgery Date Site/Laterality Comments APPENDECTOMY 09/28/2022 Right Laparoscopic appendectomy CHOLECYSTECTOMY SECTION TONSILLECTOMY AND ADENOIDECTOMY at age 16 LEG SURGERY Left flesh eating bacteria infection on upper left inner thigh Medical History Medical History Date Comments depression Acute appendicitis 09/28/2022 Family History Medical History Relation Name Comments No Known Problems Brother Depression Father Lung cancer Father smoker PTSD Father Schizophrenia Father blood cancer Father Coronary artery disease Maternal Grandmother Heart attack Maternal Grandmother Hypertension Maternal Grandmother Hypertension Mother Breast cancer Sister Down syndrome Sister Colon cancer Neg Hx Relation Name Status Comments Brother Alive Father Alive Maternal Grandfather Alive Maternal Grandmother Alive Mother Alive Paternal Grandfather Paternal Grandmother Alive Sister Social History Tobacco Use Types Packs/Day Years Used Date Smoking Tobacco: Never Smokeless Tobacco: Never Tobacco Cessation:Counseling Given: Not Answered AUDIT-C Answer Date Recorded Q1: How often do you have a drink containing alc ohol? Monthly or less 09/28/2022 Average Number of Drinks Not on file 023 Frequency of Binge Drinking Not on file 09/13 PHQ-2 Answer Date Recorded PHQ-2 Total Score (If total score is 3 or more points, staff should administer the PHQ-9) 0 02/27/2023 Personal Safety Answer Date Recorded Have you ever been in or are you currently in a harmful physical or emotional relationship or is someone making you feel afraid or unsafe? Denies 02/14/2023 Comments No Sex and Gender Information Value Date Recorded Sex Assigned at Not on file Legal Sex Female 9:08 AM [employer] Gender Identity Not on file Sexual Orientation Not on file Obstetrics History Last Filed Vital Signs Vital Sign Reading Time Taken Comments Blood Pressure 110/80 02/27/2023 11:59 AM CDT Pulse 111 02/27/2023 11:59 AM CDT Temperature 36.6 C (97.9 F) 02/14/2023 5:34 PM CDT Respiratory Rate 16 02/14/2023 5:34 PM CDT Oxygen Saturation 97% 02/14/2023 7:45 PM CDT Inhaled Oxygen Concentration - - Weight 123.4 kg (272 lb) 02/27/2023 11:59 AM CDT Height 172.7 cm (5' 8) 02/27/2023 11:59 AM CDT Body Mass Index 41.36 02/27/2023 11:59 AM CDT Plan of Treatment Health Maintenance Due Date Last Done Comments Cervical Cancer Screening 1999 Hepatitis C Screening 1999 Varicella Vaccines (1 of 2 - 13+ 2-dose series) 2012 HPV Vaccines (1 - 3-dose series) 2014 Hepatitis B Screening 2017 Depression Screening 02/28/2024 02/27/2023 Regular Well Visit/Exam 18-64 02/28/2024 02/27/2023 Influenza Vaccine (#1) 2025 DTaP/Tdap/Td Vaccine (2 - Td or Tdap) 02/11/2032 02/10/2022 Pneumococcal vaccine <65 Aged Out No longer eligible based on patient's age to complete this topic Insurance [facility]
[2025-05-12] MEDS: KETOROLAC 30 MG/ML VIAL (*BKC) IM (06:34)
[2025-05-12] MEDS: dexAMETHasone SOD PHOS INJ 10 MG/ML 1 ML VIAL IM (06:34)
== END 2025-05-12 06:50 | disposition home or self-care (01) ==
PROVIDERS: Emergency Provider Student in an Organized Health Care Education/Training Program; PCP Family Medicine
DX: J02.8 Acute pharyngitis due to other specified organisms (principal); J04.0 Acute laryngitis; B97.89 Other viral agents as the cause of diseases classified elsewhere
CPT/HCPCS: 71045; 96372; 99284; J1100; J1885

== ENCOUNTER 2025-05-20 12:44 | Outpatient (CLI) | payer OTHER, SELFPAY ==
--- NOTE | ~2025-05-20 | MMUS_ITS ---
EXAMINATION: MM diagnostic julienne BI w adela, US breast BI limited INDICATION: 25-year old female; Presents for evaluation of palpable lump in the right breast felt by her and left breast swelling. COMPARISON: Baseline TECHNIQUE: Digital breast tomosynthesis CC and MLO views of Both breasts were obtained with computer-aided detection to assist in interpretation of the study. Patient cannot identify the palpable area during today's examination. MAMMOGRAM FINDINGS: The breasts are almost entirely fatty. There are no suspicious masses, calcifications, architectural distortion or any other abnormality in either breast. BILATERAL BREAST ULTRASOUND FINDINGS: Right breast: Targeted sonographic evaluation of the palpable area was completed. There is no sonographic abnormality that correlates to the area of palpable lump. Left breast: Targeted sonographic evaluation of the area of swelling was completed. There is no sonographic abnormality that correlates to the area of swelling. IMPRESSION: 1. No mammographic or sonographic finding correlates to the palpable lump in the RIGHT breast. 2. No mammographic or sonographic evidence of malignancy within the LEFT breast. Recommendations: Clinical management of patient's right breast palpable lump and left breast swelling. Follow-up as clinically warranted. BI-RADS 1, NEGATIVE Reviewed, dictated and finalized at location B. IMPRESSION: 1. No mammographic or sonographic finding correlates to the palpable lump in th e RIGHT breast. 2. No mammographic or sonographic evidence of malignancy within the LEFT breast . Recommendations: Clinical management of patient's right breast palpable lump and left breast swe lling. Follow-up as clinically warranted. BI-RADS 1, NEGATIVE
== END 2025-05-20 12:45 | disposition home or self-care (01) ==
LOC: ANHFOHIMG 12:46
PROVIDERS: PCP Family Medicine; Visit Provider Nurse Practitioner Family
DX: N63.20 Unspecified lump in the left breast, unspecified quadrant (principal); N63.10 Unspecified lump in the right breast, unspecified quadrant
CPT/HCPCS: 76642; 77062; 77066; G0279